=== PATIENT | female | born 1960 | race Caucasian/White ===

== ENCOUNTER 2018-07-02 15:18 | Outpatient (CLI) | payer BC, SELFPAY ==
--- NOTE | 2018-07-02 14:45 | DI.REPORT_ITS ---
SYMPTOMS/DIAGNOSIS: LEFT TOTAL KNEE ARTHROPLASTY LEFT KNEE: The patient is status post TKR, the prosthesis in good position, surrounding bone intact with no apparent interval change when compared with previous images.
== END 2018-07-02 15:19 ==
PROVIDERS: PCP Nurse Practitioner Family; Visit Provider Physician Assistant
DX: Z96.652 Presence of left artificial knee joint (principal); Z47.1 Aftercare following joint replacement surgery
CPT/HCPCS: 73560

== ENCOUNTER 2018-09-16 06:01 | Day surgery (SDC) | payer BC, SELFPAY ==
[2018-09-16 06:23] VITALS: BP 136/85; PULSE 68; RESP 18; TEMP 37; O2SAT 99
[2018-09-16] MEDS: Lactated Ringers 1,000 ML 80 ML IV (06:50)
--- NOTE | 2018-09-16 07:09 | W.PM.DSUDISC ---
Discharge Plan Disposition Patient Disposition: HOME Condition: Good Discharge Details Reason For Visit: L knee arthroscopy Attending Provider: Denver Ramirez Primary Care Provider: Beryl Champagne Home Meds and New Rx's Prescriptions: New ibuprofen 600 mg tablet 600 mg PO TID PRNQty: 30 RF: 3 acetaminophen 500 mg capsule 1,000 mg PO Q8H PRN (Reason: pain) Qty: 90 RF: 0 Continue valacyclovir 500 MG tablet 1,000 mg PO tid/prn RF: 0 magnesium 200 MG tablet 400 mg PO HS RF: 0 garlic 1 EACH tablet 1 ea PO HS RF: 0 cholecalciferol (vitamin D3) 3,000 UNIT tablet 3,000 unit PO HS RF: 0 Discharge Instructions Additional Instructions: Activity: You should begin moving as soon as possible. You may work on flexion but also equally maintain extension. You may bear weight as tolerated, using crutches only for support/comfort. You should apply ice to help with swelling and elevate when possible (especially in the first few days). Dressings: The knee dressing may come down after 48 hours. You may shower and get the wound wet at that time. You should keep the wounds covered with a bandaid until follow-up. Medications: - Rarely does this require any stronger pain medications. - Recommend to take up to 1000mg of Acetaminophen (Tylenol) and 600mg of Ibuprofen (Advil) every 8 hours as needed. These larger strength tablets were called in but you also may use [id number]. Follow-up: 7-10 days Activity:: Elevate Remove Dressings/Wound Care:: 48 hours Shower/Bathe:: 48 hours Diet:: Normal Diet Discharge Orders Discharge Orders: Discharge Order (Routine); Ordered 09/16/18 Ordered By: Denver Ramirez DS: Diagnosis Discharge Diagnosis (1) Arthrofibrosis of total knee arthroplasty: Status: Acute
[2018-09-16] MEDS: Bupivacaine 0.25% Pres-Free 30 ML VIAL (08:00)
[2018-09-16 08:16] VITALS: BP 87/40; PULSE 57; RESP 10; TEMP 36.5; O2SAT 90
[2018-09-16 08:21] VITALS: BP 91/46; PULSE 58; RESP 8; TEMP 36.5; O2SAT 92
[2018-09-16 08:26] VITALS: BP 91/46; PULSE 58; RESP 10; TEMP 36.5; O2SAT 93
[2018-09-16 08:40] VITALS: BP 101/60; PULSE 74; RESP 14; TEMP 36.5; O2SAT 96
--- NOTE | 2018-09-16 09:27 | ROE_ITS ---
REPORT OF OPERATIVE PROCEDURE DATE OF SURGERY September 16, 2018 PREOPERATIVE DIAGNOSES Left knee arthrofibrosis status post knee replacement. POSTOPERATIVE DIAGNOSES Left knee arthrofibrosis status post knee replacement. SURGERY Left knee arthroscopic lysis of adhesions with manipulation under anesthesia. SURGEON Denver Ramirez M.D. FINDINGS There was notable scarring between the underside of the quadriceps tendon and the anterior femur. The se were released with electrocautery. There was also significant scarring seen around the patella att ached to the lateral medial aspect of the knee, which was also released circumferentially around the patella. Preoperatively, her motion and flexion and was at most 95 degrees passively and afterwards it was 120 to 125 degrees. ANESTHESIA General. SURGEON Denver Ramirez M.D. ESTIMATED BLOOD LOSS 5 cc COMPLICATIONS None. DISPOSITION The patient was awakened from anesthesia and taken to the PACU in stable condition. INDICATIONS FOR PROCEDURE Mee is a 58-year-old who is status post left knee replacement. She did initially very well. She was very active. However, she has lost some of her flexion. While she did have a substantial improvement from her flexion preoperatively, she has now drifted back to a less than desirable state of about 95 degrees of flexion. I reviewed this case with her in detail. Given her active lifestyle, I do think t hat it would be imperative to try to improve her knee flexion. I reviewed treatment options with her. She has exhausted nonoperative treatment options. Therefore, I recommended operative intervention. I discussed the risks of the procedure to include bleeding, infection, pain, stiffness, weakness, cont inued contracture. Despite these risks, she elected to proceed. PROCEDURE DESCRIPTION Mee is a 58 year old, who was greeted in the preoperative holding area. Her identity was confirmed a nd the correct side was identified and marked. The consent was reviewed with the patient and signed. The history and physical was updated. She was taken to the Operating Room and placed in a supine position. The left knee was prepped with C hloraPrep and draped in a standard fashion. Prophylactic antibiotics in the form of cefazolin were gi shawn. A time-out was performed for safe surgery. The left leg was then placed in a Spider II pneumatic leg zaman. The knee itself was insufflated wi th 60 cc of normal saline. A standard lateral portal was then made using a #11-blade. The arthroscope was inserted into the knee atraumatically. This had good visualization of the patella button and the femoral component. There was a significant amount of scar tissue seen around the patella. A spinal n eedle was then used to create a superolateral portal. A knife was then also used to incise the skin d own through the soft tissue and into the capsule. This then became the working portal. Using a shaver , I debrided some of the scar tissue from around the patella and its attachments medially and lateral ly to improve visualization. Once the visualization was improved, I then used a [employer] Vapr electrocau carlyle device to resect the scar tissue. A circumferential resection of scar tissue was made around the patella, releasing the adhesions both medially and laterally. The patella was then able to be more m obile and these bands attaching medially and laterally were released and the lateral and medial gutte rs were well established. I then focused superior pouch. There was a notable veil of adhesions seen between the underside of the quadriceps tendon and the ant erior femur. This was resected with electrocautery allowing the quadriceps tendon to be released. Thi s was done to establish both medial and lateral gutters up into the suprapatellar pouch. Normal capsu le was then seen, which described the extent of the resection. Excess synovium was also resected at t his time. The excess fluid was removed from the knee. There was some extravasation of fluid into the vastus lateralis and the lateral soft tissues. The extra fluid was removed from inside the knee. The scope and equipment were removed. Manipulation was then performed. Her preoperative flexion again was 95 degrees. I easily got the knee to 120 degrees and with some effort, got to about 125 degrees of flexion. There was no hitch in the range of motion without any instability. The knee portal sites were then closed with a #4-0 Nylon. 0.25% bupivacaine was injected around the portal sites and also w ithin the knee. The knee was dressed with Xeroform, 4x4s, ABD, Kerlix and an Jay wrap. A Cryo/Cuff wa s applied. At the end of the case, all counts were correct. She was transferred to the PACU in stable condition.
[2018-09-16 09:30] VITALS: BP 108/64; PULSE 60; RESP 16; TEMP 35.6; O2SAT 94
== END 2018-09-16 10:05 | disposition home or self-care (01) ==
PROVIDERS: PCP Nurse Practitioner Family; Visit Provider Student in an Organized Health Care Education/Training Program
PROC: (CPT 29870; principal; 2018-09-16 07:30)
DX: T84.82XA Fibrosis due to internal orthopedic prosthetic devices, implants and grafts, initial encounter (principal); M24.662 Ankylosis, left knee; Z96.652 Presence of left artificial knee joint
CPT/HCPCS: 29884; J0690; J1100; J1885; J2250; J2405

== ENCOUNTER 2019-01-30 07:18 | Outpatient (CLI) | payer BC, SELFPAY ==
[2019-01-30 09:16] LABS: Anion Gap 9.9 mmol/L (3-11); BUN 23 mg/dL (7-18); CO2 29.1 mmol/L (21.0-32.0); CREATININE 0.62 mg/dL (0.55-1.02); Calcium 9.5 mg/dL (8.5-10.1); Chloride 100 mmol/L (98-107); Cholesterol 241 mg/dL (50-200); Glucose 102 mg/dL (70-100); HDL Cholesterol 76 mg/dL (40-60); LDL CHOLESTEROL 144 mg/dL (<100); Potassium 4.2 mmol/L (3.5-5.1); Sodium 139 mmol/L (136-145); Triglyceride 69 mg/dL (30-150)
[2019-01-30 09:48] LABS: Vitamin D 25 Total 47.1 ng/ml (30-100)
== END 2019-01-30 07:38 ==
PROVIDERS: PCP Nurse Practitioner Family; Visit Provider Nurse Practitioner Family
DX: E78.5 Hyperlipidemia, unspecified (principal); E55.9 Vitamin D deficiency, unspecified; Z00.00 Encounter for general adult medical examination without abnormal findings
CPT/HCPCS: 36415; 80048; 80061; 82306; 83721

== ENCOUNTER 2019-02-02 00:36 | Outpatient (CLI) | payer BC, SELFPAY ==
--- NOTE | 2019-02-02 13:40 | DI.MAMMO_ITS ---
SYMPTOM/DIAGNOSIS: SCREENING, [facility], Z00.00 MAMMOGRAMS: Mammograms were interpreted according to the usual protocol including computer analysis with CAD system, tomosynthesis and C view imaging. The breasts are of moderate density with fairly symmetrical distribution of fibroglandular tissue. No dominant mass or clumped microcalcification is identified in either breast. The current examination is compared with previous examinations including 01/2018 and there has been no gross interval change in appearance in comparison with the previous studies. CONCLUSION: No specific evidence of malignancy at this time. Routine screening examinations are suggested at yearly intervals in this age group according to the ACS/ACR guidelines. Category 1. Breast density, category B. MQSA ASSESSMENT OF FINDINGS: Negative. Category 1. Patient will receive a letter notifying them of these results. BI-RADS category B. There are scattered areas of fibroglandular density.
== END 2019-02-02 00:56 ==
PROVIDERS: PCP Nurse Practitioner Family; Visit Provider Nurse Practitioner Family
DX: Z00.00 Encounter for general adult medical examination without abnormal findings (principal); Z12.31 Encounter for screening mammogram for malignant neoplasm of breast
CPT/HCPCS: 77063; 77067

== ENCOUNTER 2019-03-23 14:28 | Outpatient (CLI) | payer BC, SELFPAY ==
--- NOTE | 2019-03-23 14:26 | DI.RAD_ITS ---
SYMPTOM/DIAGNOSIS: RT KNEE PAIN RIGHT KNEE: There is prominent spurring from the lateral femoral condyle and lateral tibial plateau as well as patellofemoral joint. There is moderate to severe narrowing of the lateral femoral tibial joint space. The medial tibial joint space is well maintained. There is some cortical irregularity. IMPRESSION: Severe degenerative changes, greatest of the lateral femoral tibial joint and patellofemoral joint.
== END 2019-03-23 14:48 ==
PROVIDERS: PCP Nurse Practitioner Family; Visit Provider Physician Assistant
DX: M25.561 Pain in right knee (principal); M17.11 Unilateral primary osteoarthritis, right knee
CPT/HCPCS: 73562

== ENCOUNTER 2019-09-03 08:36 | Outpatient (CLI) | payer BC, SELFPAY ==
--- NOTE | 2019-09-03 08:15 | DI.RAD_ITS ---
EXAM: XR STANDING ALIGNMENT INDICATION: PRE OP R TKA. COMPARISON: BONE LENGTH from 07/03/2017 TECHNIQUE: 2D digital imaging was performed. FINDINGS: Standing AP views were performed from the upper abdomen through the ankles. There is a total left kn ee prosthesis. There are severe degenerative changes of the right knee. Degenerative changes are se en at the medial ankles but there is no significant ankle joint space narrowing. The hip joint spaces appear well maintained. There is no significant leg length discrepancy.
== END 2019-09-03 08:56 ==
PROVIDERS: PCP Nurse Practitioner Family; Visit Provider Student in an Organized Health Care Education/Training Program
DX: Z96.652 Presence of left artificial knee joint (principal); Z47.1 Aftercare following joint replacement surgery; M17.11 Unilateral primary osteoarthritis, right knee
CPT/HCPCS: 77073

== ENCOUNTER 2019-09-03 08:44 | Outpatient (CLI) | payer BC, SELFPAY ==
--- NOTE | 2019-09-03 08:04 | HPE_ITS ---
Date of service: 09/03/19 Assessment and Plan Assessment and plan (1) Primary osteoarthritis of right knee: Status: Chronic Assessment and plan: Right total knee replacement. Details of surgery were discussed with patient as well as risks and pertinent anatomy. All questions were answered. History of Present Illness History of Present Illness Chief Complaint: Right knee pain Narrative: Mee is a 59 year old female who comes in today for a preop history and physical for a right total knee replacement. She has been dealing with right knee pain for a few years now, but really has gotten worse in the last few months. She has known severe arthritis, and actually had a left total knee replacement performed 2 years ago and did very well. Since his knee is starting to limit her activities and the pain on a daily basis, she would like to move forward with a right total knee replacement. 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 X-rays do reveal very severe arthritis in all 3 compartments of her knee with a complete loss of joint space and significant bone spurring throughout. She was offered a right total knee replacement by Dr. Ramirez, and is anxious to move forward. Pertinent Surgical Information At her last total knee replacement she had an increase in anxiety upon entering the OR suite. She like to be premedicated prior to her spinal this time. Patient denies history of hypertension, CVA, VA, angina, asthma, COPD, renal or liver disorders, hepatitis, bleeding disorders, diabetes, immune or thyroid disorders. No complications from anesthesia. Review of Systems Constitutional Constitutional: Denies fever(s) ENT Ears, Nose, Mouth, and Throat: Denies dizziness and Denies sore throat Cardiovascular Cardiovascular: Denies chest pain, Denies palpitations and Denies dyspnea Respiratory Respiratory: Denies cough and Denies dyspnea Gastrointestinal Gastrointestinal: Denies abdominal pain, Denies melena, Denies hematochezia, Denies diarrhea, Denies nausea and Denies vomiting Genitourinary Genitourinary: Denies hematuria and Denies dysuria Neurologic Neurologic: Denies dizziness Endocrine Endocrine: Denies palpitations [facility] Medical History Chronic anxiety with depression sx. 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 subacute backpain 03/24/14 nl pelvic exam - given dx of piriformis syndrome by [facility] Surgical History (Updated 09/03/19 @ 08:31 by JAIME Cerrato) Arthrofibrosis of total knee arthroplasty (Inactive) TKA - DOS: 06/18/17 Status post arthroscopy and lysis of adhesions, with manipulation on 09/16/2018 section 1980 Michael 1982 Bryce 1987 Yolanda 1991 Omar [place]oscopy - [facility] [place] History of total left knee replacement (TKR) (Acute 06/18/17) Open Carpal Tunnel release Right - 2011 Reduction mammoplasty 1977 Tonsillectomy and adenoidectomy 1965 Family History Mother Heart disease CAD and pacemaker Brother Heart disease VA at 32. from repeat VA at 48 Social History Smoking/Tobacco Use Status: Former Tobacco Use Drug use: Never Meds Home Medications and Allergies Home Medications Medication Instructions Recorded Confirmed Type valacyclovir 1,000 mg PO tid/prn tab-cap 03/24/14 06/17/19 History magnesium 400 mg PO HS 04/03/17 06/17/19 History cholecalciferol (vitamin D3) 3,000 unit PO HS 06/12/17 06/17/19 History garlic 1 ea PO HS 06/12/17 06/17/19 History acetaminophen 1,000 mg PO Q8H PRN #90 cap 09/16/18 06/17/19 Rx ibuprofen 600 mg PO TID PRN #30 tab 09/16/18 06/17/19 Rx Allergies Allergy/AdvReac Type Severity Reaction Status Date / Time morphine AdvReac VOMITING Unverified 09/03/19 08:07 congespirin Allergy Intermediate swelling Uncoded 09/03/19 08:07 of lips Exam [facility] Head: normocephalic and atraumatic General nose exam: no nasal discharge Throat: uvula midline and no uvular edema Other: soft palate rises symmetrically, no erythema Eyes Conjunctivae: conjunctivae normal Sclera: sclerae normal Pupils: PERRL Resp Effort & Inspection: normal respiratory effort Auscultation: clear to auscultation bilaterally and no wheezes Cardio Rate: regular rate Rhythm: regular rhythm Heart Sounds: S1 normal, S2 normal and no murmurs GI Palpation: soft, no hepatosplenomegaly and nontender Auscultation: normal bowel sounds
[2019-09-03 10:05] LABS: HCT 41.6 % (36.0-46.0); HGB 13.9 g/dL (12.0-15.5); Mean Corp. HGB Concentration 33.4 g/dL (32.0-36.0); Mean Corpuscular Hemoglobin 30.4 pg (27.0-33.0); Mean Platelet Volume 10.6 fL (8.0-11.0); Platelet Count 230 x1000/uL (130-400); RBC 4.57 m/cumm (4.00-5.20); RBC Distribution Width 11.9 % (11.7-14.6); White Blood Cell Count 6.12 k/cumm (4.4-10.8)
[2019-09-03 10:17] LABS: Anion Gap 10.1 mmol/L (3-11); BUN 16 mg/dL (7-18); CO2 28.9 mmol/L (21.0-32.0); CREATININE 0.61 mg/dL (0.55-1.02); Calcium 9.5 mg/dL (8.5-10.1); Chloride 102 mmol/L (98-107); Glucose 102 mg/dL (70-100); Potassium 4.1 mmol/L (3.5-5.1); Sodium 141 mmol/L (136-145)
== END 2019-09-03 09:04 ==
PROVIDERS: PCP Nurse Practitioner Family; Visit Provider Student in an Organized Health Care Education/Training Program
DX: M25.561 Pain in right knee (principal); M17.11 Unilateral primary osteoarthritis, right knee; Z01.818 Encounter for other preprocedural examination; Z01.812 Encounter for preprocedural laboratory examination
CPT/HCPCS: 36415; 80048; 85027; NC

== ENCOUNTER 2019-09-15 09:22 | Inpatient (IN) | payer BC, SELFPAY ==
[2019-09-15] VITALS (13 sets, daily range): BP systolic 100–156; BP diastolic 64–101; PULSE 63–94; RESP 12–18; TEMP 36.5–37; O2SAT 94–97
[2019-09-15] MEDS: Celecoxib 200 MG CAP 400 MG PO (10:17)
[2019-09-15] MEDS: Acetaminophen 500 MG TAB 1000 MG PO ×3 (10:17→19:36)
[2019-09-15] MEDS: Gabapentin 300 MG CAP PO ×2 (10:17→21:17)
[2019-09-15] MEDS: Lactated Ringers 1,000 ML 80 ML IV ×2 (10:21→15:20)
[2019-09-15] MEDS: Bupivacaine 0.25% Pres-Free 30 ML VIAL ×2 (11:01→13:35)
[2019-09-15] MEDS: ceFAZolin 2 GM/50 ML BAG IVPB (12:17)
[2019-09-15] MEDS: Ketorolac 30 MG/ML VIAL (13:35)
[2019-09-15] MEDS: Normal Saline 50 ML (13:35)
--- NOTE | 2019-09-15 18:32 | NUR.NOTE ---
Nursing Note: Patient arrives from PACU around 1410. Patient alert and oriented x3. VSS. see worklist. Patient reports is excited to get walking. Denies pain. Right knee dressing clean, dry and intact. HR regular. Lungs clear with hypoactive bowel sounds. Positive pedal pulses bilaterally. Patient reports numbness in bilateral legs when up to the floor. Patient able to move legs from hips and wiggle toes slightly.
[2019-09-15] MEDS: Aspirin E.C. 81 MG TABEC PO (19:37)
[2019-09-15] MEDS: Celecoxib 200 MG CAP PO (19:37)
[2019-09-15] MEDS: ceFAZolin 1 GM/50 ML BAG IVPB (19:38)
--- NOTE | 2019-09-15 20:47 | W.PM.OP ---
Date of service: 09/15/19 Time of Service: 15:47 Operative Note Operative Note DATE OF PROCEDURE: 09/15/19 PRE-OP DIAGNOSIS: Right Knee Osteoarthritis POST-OP DIAGNOSIS: same PROCEDURE: Right Total Knee Replacement SURGEON: Denver Ramirez RADIOLOGICAL EQUIPMENT SPECIALIST: Riya Diez ANESTHESIA: regional and spinal ESTIMATED BLOOD LOSS: 200 PATHOLOGY: none sent TOURNIQUET TIME: 27 COMPLICATIONS: None Patient was transported to: PACU Patient's condition: stable Implants: 1. Depuy Attune Posterior Stabilized Femoral Component, Size 4 2. Depuy Attune Fixed Platform Tibial Component, Size 3 3. Depuy Attune 4 x 5 mm fixed, Stabilized Poly 4. Depuy Attune Patellar Component, Size 35 mm Indications: I have seen Mee in clinic for symptoms of RIGHT knee arthritis, confirmed with radiographic findings. Mee has exhausted nonoperative methods and was having significant limitations in daily function and desired better function and less pain. I discussed the technical details of a knee replacement. I explained the risks of the procedure to include, but not limited to, bleeding, infection, pain, stiffness, fracture, damage to nerves and vessels, damage to muscles and tendons, loosening, need for repeat procedure, blood clot and cardiopulmonary demise. Despite these risks, she elected to proceed. Findings: There was significant signs of arthritis throughout the knee with large hypertrophic osteophytes seen throughout all 3 compartments. Procedure Description: Mee was greeted in the preoperative holding area where the correct side was identified and marked. The consent was reviewed with the patient and signed. The history and physical was updated. All questions were answered. Preoperative mediacations were administered: Acetaminophen 1000mg, Celebrex 400mg, and Gabapentin 300mg. An adductor canal block was then administered by the anesthesia team in the PACU. Mee was taken back to the operating room. A spinal anesthestic was then administered. The patient was placed into the supine position on the operating room table. A nonsterile tourniquet was placed high onto the leg but only used for cementing. Posts were placed for positioning during the procedure. All bony prominences were well padded. Prophylactic antibiotics in the form of cefazolin were administered. 1g of Tranxemic Acid was given intravenously within 30 minutes of incision. The right leg was then prepped with Chloraprep and draped in a standard fashion with impervious stockinette and extremity drape. Prior to placement of iodine impregnated skin protection a second prep was performed with ChloraPrep. A timeout to confirm correct identity, side and site, procedure, allergies, anesthesia, and medical concerns was performed. With the knee in some flexion, a midline incision was made overlying the knee. Full thickness skin flaps were raised once the extensor mechanism was encountered. These were raised medially and laterally. Any bleeding was controlled with electrocautery. Once the extensor mechanism was fully exposed, a medial parapatellar arthrotomy was performed in a flexed position. All bleeding from the arthrotomy and the geniculate arteries was coagulated. A medial subperiosteal peel was performed with electrocautery to the midcoronal plane. The fat pad was removed while keeping the patellar tendon protected. The anterior distal femur synovium was removed for later visualization. The ACL and PCL were resected and the anterior horn of the lateral meniscus was transected. The knee was then flexed with the patella everted. Large osteophytes from the tibia were removed. Large osteophytes from the femur were removed. Large impinging osteophytes from the trochlea and patella were removed for patellar mobility. Using a step drill, and based on preoperative templating, the femoral canal was entered. This was done with a step drill without any difficulty. The intramedullary distal femoral cut guide was inserted, set to a 5 degree valgus cut and 9mm cut thickness. There was some hypoplasia of the lateral femoral condyle and any remnant cartilage of the medial femoral condyle was removed for appropriate thickness. The distal femoral cut guide was then held in position and pinned. With the soft tissues protected, the distal cut was performed. This was passed over a few times to ensure a planar cut. I then turned attention to the tibia. The extramedullary guide was placed onto the leg. The distal aspect was slid medial to adjust for position of center of ankle and stay in line with shaft of the tibia. Approximately 3-5 degrees of posterior slope was kept in the proximal cutting guide. The center of the guide was aligned with the PCL. The stylus was used to assess cut thickness. The lateral side, most involved side, was set for a 5mm cut. This corresponded to 8 mm from the medial side. This was then held in position and pinned into place with 2 additional pins and a cross pin for stability. The medial and lateral collateral ligaments were protected and the cut was performed. With this completed, it was assessed and noted to be of appropriate dimensions. The guide was removed. A spacer block was inserted and the knee was brought into extension. The 5 mm spacer block provided full extension, without hyperextension and with stability of both the medial and lateral collateral ligaments was assessed. The pins from the femur and the tibia were then removed. The distal femur was then sized. The anterior stylus was placed onto the lateral ridge of the anterior femur. This indicated a size 4 femur. The external rotation of the guide was adjusted to 5 degrees to match the epicondylar axis, perpendicular to Frank?s line. The 4-in-1 cutting guide was the placed. The posterior medial femur cut was evaluated and appeared of good thickness. The spacer block was inserted underneath the cutting guide and stability was confirmed in 90 degrees of flexion. An austyn wing was used to confirm appropriate position of the anterior cut to avoid notching. This cutting guide was ensured to be flush on the cut surface and then pinned into place with headed pins. While protecting the soft tissues, quad tendon, and collateral ligaments, the anterior and posterior cuts were performed with a saw. The central two pins were removed and the posterior and anterior chamfers were cut next. The notch-cutting guide was placed. This was pinned to lateralize the femoral component as much as possible while keeping it flush on the cut surface. This was then pinned into position. A reciprocating saw was used to make the notch cut. A rasp smoothed the cut surfaces. A trial posterior stabilized femoral component was then inserted, impacted down to the cut surfaces, and the lug holes were drilled. A provisional trial tibial component was placed and the knee was brought through range of motion. There was noted to be excellent extension and flexion. There was no significant instability. The patella was tracking without thumbs. The tibial cut surface was fully exposed. The medial and lateral menisci were removed. The tibia was then sized as a 3. The tibia had been previously marked during trialing to correspond to the center of the tibial component to help with rotation. The trial was aligned to this riya, approximately rotated to the medial 1/3rd of the tibial tubercle. The trial was pinned into place. The tibia was prepared with a reamer and a keel punch. The knee was then brought into extension and the patella was measured as 25 mm. Using the patellar clamp and cut guide, this was resected to a flat surface with at least 13mm of thickness remaining. The size 35 patella fit the best. This was oriented and then clamped into position. The lugs were drilled. The trial components were removed. The final components, except for the polyethylene were opened on the back table. The periosteal and capsular tissues, especially posteriorly, around the knee were then systematically injected with a periarticular cocktail consisting of 50cc 0.25% Marcaine, 30mg Ketorolac, 20cc of Exparal and 50cc of injectable saline. The tourniquet was then inflated to 275mmHg. The knee was thoroughly irrigated with a pulse lavage and dried. On the back table, with the implants opened, the cement was mixed. 2 batches of antibiotic laden cement were prepared with vacuum assistance. After the cement was ready a small amount was placed on to the back side of the tibial component at the keel. A small amount was placed onto the posterior flange of the femur. Cement was manual pressurized and impregnated into the cut surface of the tibia. The tibial component was then inserted into the cut surface and impacted into position. Excess cement was removed and the component was reimpacted. Again, excess cement was removed and our attention was then turned to the femur. The femoral cut surface was once again dried and cement was manually impacted into the cut surface. The femoral component was lined with the lug holes and impacted. Excess cement was removed. It was ensured to be down against the cut surface. The trial polyethylene was then inserted and the leg was brought out into full extension for the duration of the cement curing process, approximately 15min. Cement was lastly manually impacted into the cut surface of the patella and the patellar button was clamped into position and held. During this process attention was turned to the gutters of the knee and for all interfaces for any excess cement. While allowing the cement to cure, the knee was irrigated with Irrisept chlorhexadine solution. This was allowed to sit in the knee for 3 minutes. After the cement had finally cured, approximately 15min, the clamp was removed from the patella and the knee was taken through range of motion. A size 5 mm polyethylene component provided the best range of motion and stability with less than 2mm gapping with medial and lateral stress and full extension without significant hyperextension. The patella was tracking with a no-thumbs technique. The trial poly was removed and once again the knee was checked for any loose, excess, or errant cement. The poly component was then inserted and impacted into position after cleaning and drying the tibial tray. The capsule was then reapproximated with a No. 1 Vicryl at multiple locations. The capsule was finally closed with a No. 2 Stratafix, barbed suture. The tourniquet was then released and the arthrotomy appeared watertight without significant bleeding. The second dosing of 1g TXA was started. Deep tissues were then reapproximated with 0 Vicryl and 2-0 Vicryl. The skin was closed with a running 3-0 Monocryl in a subcuticular fashion. This was reinforced with skin glue. A Mepilex silver dressing was applied along with a [id number] LILY wrap. A CryoCuff was applied. Mee was transferred to the hospital bed without difficulty an suffering no apparent complication. Mee has a good prognosis. Physical therapy will start today and without restrictions, weight-bearing as tolerated. Aspirin 81mg BID will be used for DVT prophylaxis.
[2019-09-15] MEDS: Cholecalciferol (Vitamin D3) 1,000 UNIT TAB 3000 UNITS PO (21:16)
[2019-09-15] MEDS: Magnesium Oxide 400 MG TAB PO (21:16)
[2019-09-16] MEDS: Lactated Ringers 1,000 ML 80 ML IV (03:36)
[2019-09-16] MEDS: ceFAZolin 1 GM/50 ML BAG IVPB ×2 (03:37→11:02)
[2019-09-16 03:40] VITALS: BP 134/72; PULSE 67; RESP 17; TEMP 36.8; O2SAT 97
[2019-09-16 07:35] VITALS: BP 163/78; PULSE 65; RESP 18; TEMP 37; O2SAT 97
[2019-09-16] MEDS: Acetaminophen 500 MG TAB 1000 MG PO (08:05)
[2019-09-16] MEDS: Pantoprazole 40 MG TABCR PO (08:06)
[2019-09-16] MEDS: Aspirin E.C. 81 MG TABEC PO (08:06)
[2019-09-16] MEDS: Celecoxib 200 MG CAP PO (08:06)
--- NOTE | 2019-09-16 09:55 | DSE_ITS ---
Date of service: 09/16/19 Time of Service: 09:55 DS: Diagnosis Discharge Diagnosis (1) Primary osteoarthritis of right knee: Status: Chronic Discharge Plan Disposition Patient Disposition: HOME Condition: Good Discharge Details Reason For Visit: (R) KNEE DJD Admit Date/Time: 09/15/19 09:22 Admit Provider: Denver Ramirez Attending Provider: Denver Ramirez Primary Care Provider: Beryl Champagne Hospital Course Hospital Course: Patient was admitted to the medical/surgical floor following the procedure. It was tolerated well without any notable medical, surgical, or anesthetic complications. Mobilization began postoperatively. The barrett catheter was removed and voiding spontaneously. Vitals were stable. Physical therapy worked with the patient and was cleared for discharge home. No acute medical issues. Home Meds and New Rx's Prescriptions: New celecoxib 200 mg capsule 200 mg PO BID PRN (Reason: pain) Qty: 60 RF: 1 aspirin 81 mg tablet,delayed release (DR/EC) 81 mg PO BID Qty: 60 RF: 0 acetaminophen 500 mg tablet 1,000 mg PO Q8H PRN (Reason: pain) Qty: 90 RF: 3 hydromorphone 2 mg tablet 2 mg PO Q6H PRN (Reason: pain) Qty: 12 RF: 0 pantoprazole 40 mg tablet,delayed release (DR/EC) 40 mg PO DAILY Qty: 30 RF: 0 gabapentin 300 mg capsule 300 mg PO QHS Qty: 7 RF: 0 Continued magnesium 200 MG tablet 400 mg PO HS RF: 0 garlic 1 EACH tablet 1 ea PO HS RF: 0 cholecalciferol (vitamin D3) 3,000 UNIT tablet 3,000 unit PO HS RF: 0 Discontinued valacyclovir 500 MG tablet 1,000 mg PO tid/prn RF: 0 ibuprofen 600 mg tablet 600 mg PO TID PRNQty: 30 RF: 3 acetaminophen 500 mg capsule 1,000 mg PO Q8H PRN (Reason: pain) Qty: 90 RF: 0 Discharge Instructions Additional Instructions: Dr. Ramirez?s Total Knee Discharge Instructions Activity: The most important activity is to walk. You should try to take short walks a few times a day. It is important that when resting you work on keeping the knee straight. Avoid putting a pillow behind the knee as this will encourage flexion. Work on range of motion exercises as provided by Physical Therapy. - Start outpatient physical therapy within 2 weeks. - You should wear the CLAUDE hose on both legs for 2 weeks. Dressing: Keep the surgical dressing in place for at least one week. After the first week it may be removed and replace with light gauze and tape or nothing. It may get wet after 3 days but avoid soaking the dressing. If it gets wet, just lightly pat dry. Medications: - You should take Tylenol and anti-inflammatory Celebrex as your primary pain control medications - You have been prescribed a stronger pain medication Hydromorphone for breakthrough pain, take as needed as prescribed. - You have also been prescribed a stomach acid reduction agent Pantoprozole to help reduce stomach acid and reflux. - You will be taking Aspirin 81mg twice a day for DVT prevention unless instructed otherwise. - If you have constipation you should take Colace or Miralax (both [id number]). It takes most people 3-4 days to have a bowel movement. Follow-up: 2 weeks Referrals: Denver Ramirez MD [ [facility] STAFF PHYSICIAN] - [facility] [Provider Group] (s/p R TKA. Start PT within 2 weeks post-op.) Activity:: Activity as Tolerated Equipment/Supplies:: No Equipment Needed Diet:: As Tolerated Discharge Orders Discharge Orders: Discharge Order (Routine); Ordered 09/16/19 Ordered By: Denver Ramirez DS: Summary Status at Discharge Functional status at discharge: uses cane/walker Overall status at discharge: patient is progressing back to baseline Mental Status: mental status grossly normal Speech and Movement: speech and movement normal Mood: congruent mood Affect: normal affect Exam Psych Mental Status: mental status grossly normal Speech and Movement: speech and movement normal Mood: congruent mood Affect: normal affect DS: Data Vitals/I&O Vitals and I&O: Vital Signs Temperature 37 C 09/16/19 07:35 Temperature Source Tympanic 09/16/19 07:35 Pulse 65 09/16/19 07:35 Pulse Rhythm Regular 09/16/19 03:47 Respiratory Rate 18 09/16/19 07:35 Respiratory Effort 09/16/19 03:47 Respiratory Depth Normal 09/16/19 03:47 Respiratory Pattern Normal 09/16/19 03:47 Blood Pressure 163/78 H 09/16/19 07:35 Pulse Oximetry 97 09/16/19 07:35 Respiratory End-tidal CO2 33 09/15/19 14:55 Oxygen Delivery Method Room Air 09/16/19 07:35 Oxygen Flow Rate 0 09/16/19 07:35 Pain Level 3 09/16/19 08:05 Intake & Output 09/15/19 09/15/19 09/16/19 11:59 23:59 11:59 Intake Total 1576.667 / 2067.771 4374.333 / 1031.333 Output Total 300 / 300 2099 / 2099 Balance 1276.667 / 1276.667 -1068.667 / -1068.667 Weight 76.6 kg Intake: IV 1096.667 / 7515.417 1359.333 / 1031.333 Oral 480 / 480 Output: Urine 100 / 100 2099 / 2099 Estimated Blood Loss 200 / 200 Other: Urine Color Yellow Yellow Urine Appearance Clear Clear Emesis Description None Voiding Methods Toilet [facility] Medical History Chronic anxiety with depression sx. pt. states she she does not have either of these. 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 from repeat MA at 48 Social History Smoking/Tobacco Use Status: Former Tobacco Use Drug use: Never
--- NOTE | 2019-09-16 10:08 | IN_ITS ---
Date of service: 09/16/19 Time of Service: 09:20 PT Notes Inpatient Physical Therapy Evaluation Date: 09/16/2019 Referring Doctor: Denver Ramirez MD PT Orders: PT CONSULT: S/P R TKA Precautions: Fall. Standard. WBAT on R LE. Patient Profile/Admitting Diagnosis: Patient is a 59-year-old female status post total R knee arthroplasty on POD 1 due to primary unilateral osteoarthritis of R knee. PMHX: Medical History Chronic anxiety with depression sx. 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 subacute backpain 03/24/14 nl pelvic exam - given dx of piriformis syndrome by [facility] Surgical History (Updated 09/03/19 @ 08:31 by JAIME Cerrato) Arthrofibrosis of total knee arthroplasty (Inactive) TKA - DOS: 06/18/17 Status post arthroscopy and lysis of adhesions, with manipulation on 09/16/2018 section 1980 Michael 1982 Bryce 1987 Yolanda 1991 [facility] [place] [facility] [place] History of total left knee replacement (TKR) (Acute 06/18/17) Open Carpal Tunnel releaseRight - 2010 Reduction [id number] Tonsillectomy and adenoidectomy 1965 Social History/Home Situation: Patient lives with in a 2 floor house with 1 step to enter. She has 6 steps leading to a landing with a rail on the left going up and another set of 6-7 steps with a rail on the right onto the second floor of the house where their bedroom is. Patient is independent with all aspects of ADLs prior to admission. She is a painting instructor. Equipment Owned/DME: [facility] Subjective: Patient is agreeable to a PT consul. She reports mild soreness on the right knee and her right quadriceps muscle with gait activity. She denies dizziness, headache, and chest pain throughout PT session Objective: General Observation: Mepilex Ag to surgical incision. Bilateral TEDS. Cryo/Cuff to R knee. Mental Status: Alert and oriented x4 Pain: 2/10 with gait activity None ROM: Right Upper Extremity: Shoulder Flexion WFL. Shoulder abduction WFL. Elbow flexion WFL. Wrist flexion WFL. Opening and closing of hand WFL. Left Upper Extremity: Shoulder Flexion WFL. Shoulder abduction WFL. Elbow flexion WFL. Wrist flexion WFL. Opening and closing of hand WFL. Right Lower Extremity: Hip flexion WFL. Hip abduction WFL. Knee flexion -18 to 10 degrees. Knee extension -18. Ankle dorsiflexion WFL. Ankle plantarflexion WFL. Left Lower Extremity: Hip flexion WFL. Hip abduction WFL. Knee flexion WFL. Ankle dorsiflexion WFL. Ankle plantarflexion WFL. Strength: Right Upper Extremity: Shoulder flexors 5/5. Shoulder abductors 5/5. Elbow flexors 5/5. Elbow extensors 5/5. Data Control Clerk Supervisor strong. Left Upper Extremity: Shoulder flexors 5/5. Shoulder abductors 5/5. Elbow flexors 5/5. Elbow extensors 5/5. Data Control Clerk Supervisor strong. Right Lower Extremity: Hip flexors 4/5. Hip abductors 5/5. Knee flexors 4/5. Knee extensors 4/5. Ankle dorsiflexors 5/5. Ankle plantarflexors 5/5. Left Lower Extremity:Hip flexors 5/5. Hip abductors 5/5. Knee flexors 5/5. Knee extensors 5/5. Ankle dorsiflexors 5/5. Ankle plantarflexors 5/5. Sensation: Intact as to pain and pressure on bilateral lower extremities. Bed Mobility/Transfers: Rolling independent Supine to sit independent Sit to supine independent Sit to stand independent Stand to sit independent Bed to chair independent Chair to bed independent Gait: Patient was able to tolerate level surface ambulation of 120 feet x 2 using a front-wheeled walker requiring only supervision assist with a reciprocal gait pattern and symmetrical step length and height. Patient is also able to tolerate three 4 inch steps and two 6 inch steps holding onto one rail with step to gait pattern requiring only supervision assist. Balance: Static Sitting: Normal Dynamic Sitting: Normal Static Standing: Normal Dynamic Standing: Good Special Tests: Mobility Limitations Standardized Measure [facility] AM-PAC 6 clicks Basic Mobility Inpatient Short Form: Raw Score: 24 CMS Score: 0% deficit Informed Consent/Education: Patient instructed in purpose of PT consult and plan of care. Patient was also instructed with initial batch of bilateral lower extremity exercises to facilitate progression to previous mobility level. Assessment: Patient is a 59-year-old female status post total R knee arthroplasty on POD 1 due to primary unilateral osteoarthritis of R knee. She she is highly motivated. Her prior level of function is independent with all aspects of ADLs. Her prognosis for regaining previous mobility level is excellent. Patient presents with clinical signs and symptoms consistent with current/admitting diagnoses that have resulted to mobility limitations, gait instability, generalized weakness, and impairment of motor control as demonstrated by the following impairment level findings: 1. Decreased strength to B LE major muscle groups 2. Impaired standing balance 3. Limitation of joint range of motion in R knee Impairments are contributing to the following functional limitations: 1. Inability to safely ambulate without assistive device and physical assistance 2. Increase completion time for mobility ADL performance Corey HensleyLeni is [place] a 68551 moderate complexity based on the following: History: 59-year-old female who is status post total knee arthroplasty on postoperative day 1 due to primary unilateral osteoarthritis of R knee Examination: Demonstrable impairment in strength, balance, and range of motion with underlying impairments and functional limitations as documented above Presentation:Evolving Decision Makin moderate complexity Goals: N/A. Patient is evaluation only andis cleared to go home on POD 1 per orthopedic surgeon orders. Plan of Care/Treatment Plan: N/A. Patient is evaluation only and is cleared to go home on POD 1 per orthopedic surgeon orders DISCHARGE RECOMMENDATIONS: Discharge to home when medically cleared by orthopedic surgeon. May benefit from skilled physical therapy services according to orthopedic surgeon's timeline recommendations. Patient will be educated and trained on home exercise program per TKA exercise protocol in preparation for outpatient physical therapy services. TREATMENT CODE/TIME: 48565 moderate complexity x37 minutes Thank you very much for this referral. Dennise Patel PT, DPT, CLT [facility]
[2019-09-16 11:15] VITALS: BP 122/76; PULSE 51; RESP 16; TEMP 37.2; O2SAT 96
--- NOTE | 2019-09-16 15:00 | PDOC.CMDIS ---
- If Service Date Differs Date of service: 09/16/19 Time of Service: 15:00 LACE Index Scoring Tool - Questions: Length of Stay (in days): 1 Acuity (Admit via E.D.?): No E.D. Visits: 0 - Answers: Total Score: 1 Risk of Readmission: Low Risk Care Management Discharge Reason for Hospitalization: R knee DJD Discharge Plan: Mee will discharge home with no services. She will follow up with her surgeon and discharge plan of care. Patient/Family Education Needs: Discharge plan, limitations, follow up plan, Ask Me Three.
== END 2019-09-16 12:12 | disposition home or self-care (01) | DRG 470 ==
LOC: PDS 10:11 → MS 14:43
PROVIDERS: Admitting Provider Student in an Organized Health Care Education/Training Program; PCP Nurse Practitioner Family; Visit Provider Student in an Organized Health Care Education/Training Program
PROC: 0SRC0J9 Replacement of Right Knee Joint with Synthetic Substitute, Cemented, Open Approach (ICD-10-PCS; CPT 27447; principal; 2019-09-15 11:45)
DX: M17.11 Unilateral primary osteoarthritis, right knee (principal); M25.561 Pain in right knee; Z96.651 Presence of right artificial knee joint; G89.18 Other acute postprocedural pain; F41.8 Other specified anxiety disorders
CPT/HCPCS: 27447; 76942; 97162; NC; J0690; J1100; J1885; J2250; J2405

== ENCOUNTER 2019-09-28 15:13 | Outpatient (CLI) | payer BC, SELFPAY ==
--- NOTE | 2019-09-28 14:54 | DI.RAD_ITS ---
EXAM: XR KNEE RT 1V INDICATION: 1ST POST OP. COMPARISON: None TECHNIQUE: 2D digital imaging was performed. FINDINGS: A right total knee prosthesis is seen. IMPRESSION: There is a total right knee prosthesis in place since the previous exams. No abnormal bony lucencies are seen. There is a question of a joint effusion.
--- NOTE | 2019-09-28 14:54 | DI.RAD_ITS ---
EXAM: XR STANDING ALIGNMENT INDICATION: 1ST POST OP. COMPARISON: No exams were available for comparison TECHNIQUE: 2D digital imaging was performed. FINDINGS: There are bilateral knee prostheses. The hip joint spaces are well maintained. There is no signifi cant leg length discrepancy. There are mild degenerative changes of the medial ankle joints.
== END 2019-09-28 15:33 ==
PROVIDERS: PCP Nurse Practitioner Family; Visit Provider Student in an Organized Health Care Education/Training Program
DX: M17.11 Unilateral primary osteoarthritis, right knee (principal); Z96.653 Presence of artificial knee joint, bilateral; M25.461 Effusion, right knee
CPT/HCPCS: 73560; 77073

== ENCOUNTER 2020-05-02 06:59 | Day surgery (SDC) | payer BC, SELFPAY ==
--- NOTE | 2020-04-28 11:43 | NUR.NOTE ---
On 04/22 visit pt. BP in office was 182/137 (Noted by Dr. Rice in office...was retaken 145/90), pt. states her BP is never usually that high. Pt. does have home BP machine, this RN asked her to obtain a reading during pre-op call which was 141/118, asked to waits a few minutes and repeat, BP was 158/87. Marielena from anesthesia aware, will treat DOS if elevated. Pt. informed if she continues to have elevated BP's as previously obtained, that she is to call her PCP. Pt. stated understanding. Nursing Note:
--- NOTE | 2020-05-02 06:45 | COLE_ITS ---
Date of service: 05/02/20 Time of Service: 08:28 Colonoscopy Report Date of procedure: 05/02/20 Pre-op diagnosis general: colon cancer screening Post-op diagnosis procedure note: other (diverticulosis and polyps) Procedure: Colonoscopy with polypectomy Surgeon: Soraida Rice Anesthesia proc note operative: other (General/ ASA 2/Alma Rosa Beltran CRNA) Estimated blood loss (mL): 5 Pathology: other (rectal polyp x3, cecal polyp and descending colon polyp) Complications: None Disposition: same day Indications: Healthy 59-year-old female seen in the office for a screening colonoscopy. Her last colonoscopy was 10 years ago and was normal. She does have some intermittent reflux especially at nighttime if she eats a large meal. She is not regularly on any antacids. There is no family history of colon cancer. P\\ Colonoscopy under sedation Risks, benefits and complications have been reviewed. Complications include but are not limited to bleeding, pain, perforation, missed small lesion/polyp, sore throat, aspiration and adverse reaction to the medications. Questions were entertained and answered to their satisfaction and they wished to proceed. No guarantees were given or implied. Prep: Miralax/Dulcolax Procedure Start Time: :28 Procedure End Time: 08:54 Retraction Time: 14 minutes Findings: 3 polyps in the rectum, most likely hyperplastic. One polyp in the cecum and one in the descending colon, most likely adenomas. Mild st-diverticulosis Procedure Description: After informed consent was obtained the patient was taken to the procedure room and placed in a left decubitous position. Monitors were applied and a time out was done. The patients name, date of , procedure, allergies to medications and metal in their body was reviewed. The patient was then sedated. Once sedated and comfortable a rectal exam was done. External exam showed a small skin tag. Internal exam revealed a normal sphincter tone and no palpable masses. The scope was then introduced and retro-flexed. No internal hemorrhoids, masses or polyps were identified on retro-flexion. The scope was then advanced to the cecum without difficulty. The ileocecal valve and appendiceal orifice were identified. The prep was good. The scope was then slowly retracted over 14 minutes back into the rectum. Polyps were removed with cold forceps in the rectum x3, cecum x1 and descending colon x1. The scope was removed and the pa tient was woken up and taken back to Same day surgery in stable condition. The patient tolerated the procedure well and there were no immediate complications. Follow up: The patient should follow up in 3-5 years unless they develop changes in bowel habits or other new gastrointestinal complaints.
--- NOTE | 2020-05-02 06:48 | W.PM.DSUDISC ---
Discharge Plan Disposition Patient Disposition: HOME Condition: Good Discharge Details Reason For Visit: Colon cancer screening Attending Provider: Soraida Rice Primary Care Provider: Beryl Champagne Home Meds and New Rx's Prescriptions: Continued aspirin [Adult Aspirin Regimen] 81 mg tablet,delayed release (DR/EC) 81 mg PO DAILY RF: 0 magnesium 200 MG tablet 400 mg PO HS RF: 0 garlic Tablet 1 tab PO HS RF: 0 ibuprofen 800 mg tablet 800 mg PO TID RF: 0 ibuprofen [Advil] 200 mg tablet 200 mg PO Q6H PRNRF: 0 cholecalciferol (vitamin D3) 3,000 UNIT tablet 3,000 unit PO HS RF: 0 Discontinued bisacodyl [Dulcolax (bisacodyl)] 5 mg tablet,delayed release (DR/EC) 5 mg PO ONCE Qty: 4 RF: 0 polyethylene glycol 3350 17 gram powder in packet 255 g PO DAILY Qty: 15 RF: 0 Discharge Instructions Instructions: Diverticulosis (DC), Colorectal Polyps (DC) Additional Instructions: Findings: 5 polyps diverticulosis Follow up: 3-5 years Please call if you develop: fevers >101.5 Nausea or Vomiting Abdominal pain that is not transient DAY SURGERY UNIT POST ENDOSCOPY INSTRUCTIONS 1. Because there will be medication in your system for the next 24 hours, you may feel a little sleepy. Your coordination will be affected. Therefore: a. Do not drive or operate dangerous equipment for 24 hours. b. Do not drink alcohol beverages for 24 hours (not even beer). c. Plan to go home and rest for the day. 2. Generally there are no restrictions on your activity after a day or so has gone by, but you may feel a bit fatigued for a few days. 3 After you arrive home you may have a light meal and return to a normal diet as you can tolerate it without feeling sick to your stomach. 4. After surgery, you may feel pain or discomfort. This should be only transient, but if it persists please contact your doctor. 5. If there are any questions regarding the findings of your procedure, please feel free to contact your doctor. 6. If you are unable to contact your doctor with a problem, contact the hospital at [phone]. 7. Continue all your regular medications unless directed otherwise. I understand the above instructions and have no questions. Signature of Patient or Responsible Adult Escort Date/Time Name of Responsible Adult Escort Signature of Nurse Date/Time Activity:: Activity as Tolerated Diet:: High Fiber diet Discharge Orders Discharge Orders: Discharge Order (Routine); Ordered 05/02/20 Ordered By: Soraida Rice
[2020-05-02 07:05] VITALS: BP 146/104; PULSE 80; RESP 18; TEMP 36.8; O2SAT 99
[2020-05-02] MEDS: Lactated Ringers 1,000 ML 80 ML IV (07:32)
--- NOTE | 2020-05-02 08:30 | BOWEL_PTH ---
PATIENT: ESEQUIEL LONG LOC: DEL U#:[id number] AGE/SX: 60/F ROOM: RE05/02/[address]: Soraida Rice MD : [id number] BED: DIS: 05/02/2020 SPEC #: [id number] RECD: 05/02/20 12:42 STATUS: YOLETTE REQ #: [id number] AMBER: 05/02/20 08:[address]: Soraida Rice DEPT: Surgical Specimen RECD BY: Angela Saleh ENTERED: 05/02/20 12:42 SP TYPE: Bowel OTHR DR: Beryl Champagne Tissues: 1 - BIOPSY BOWEL 2 - BIOPSY BOWEL 3 - BIOPSY BOWEL Procedures: GROSS AND MICRO LEVEL 4 Comments: [id number]
[2020-05-02 09:25] VITALS: BP 109/68; PULSE 60; RESP 18; TEMP 36.2; O2SAT 95
== END 2020-05-02 10:00 | disposition home or self-care (01) ==
LOC: SUR 06:59
PROVIDERS: PCP Nurse Practitioner Family; Visit Provider Surgery
PROC: 0DJD8ZZ Inspection of Lower Intestinal Tract, Via Natural or Artificial Opening Endoscopic (ICD-10-PCS; CPT 45378; principal; 2020-05-02 08:30)
DX: Z12.11 Encounter for screening for malignant neoplasm of colon (principal); K62.1 Rectal polyp; D12.0 Benign neoplasm of cecum; D12.4 Benign neoplasm of descending colon; K21.9 Gastro-esophageal reflux disease without esophagitis; K57.30 Diverticulosis of large intestine without perforation or abscess without bleeding
CPT/HCPCS: 45380; 88305; J2001

== ENCOUNTER 2020-09-26 14:59 | Outpatient (CLI) | payer BC, SELFPAY ==
--- NOTE | 2020-09-26 14:15 | DI.RAD_ITS ---
EXAM: XR KNEE RT 2V AP,LAT INDICATION: annual f/u R TKA. COMPARISON: CR XR KNEE RT 1V from 09/28/2019 TECHNIQUE: 2D digital imaging was performed. FINDINGS: There has been no change in the right total knee prosthesis or appearance of the surrounding bone. A small joint effusion is seen. DATA REPOSITORY: RADIATION DOSE DELIVERED:
== END 2020-09-26 15:19 ==
PROVIDERS: PCP Nurse Practitioner Family; Referring Provider Nurse Practitioner Family; Visit Provider Student in an Organized Health Care Education/Training Program
DX: Z96.651 Presence of right artificial knee joint (principal); M25.461 Effusion, right knee
CPT/HCPCS: 73560